=== PATIENT | male | born 1945 | race Caucasian/White ===

== ENCOUNTER 2018-09-21 08:58 | Day surgery (SDC) | payer MEDICARE, OTHER ==
[~2018-09-21 08:58] MED LIST: Ak-Dilate OPHTHALMIC*** 1.065 ML, Cyclogyl 1% OPHTH SOL 5 ML 1.065 ML, GATIFLOXACIN 0.5... OP ONE; Lactated Ringers 1,000 ML IV ONE; Lactated Ringers 1,000 ML IV SCH; TETRACAINE 0.5% STERI-UNIT SOL OP ONE
[2018-09-21] MEDS ORDERED: DIPRIVAN 200 MG/20 ML IV ONE (08:59)
[2018-09-21] MEDS ORDERED: BSS 500 ML, Fortaz/Tazicef 1 GM** 0.2 G IO ONE ×2 (11:00)
[2018-09-21] MEDS ORDERED: ACETAZOLAMIDE 250 MG TABLET PO ONE (11:00)
[2018-09-21] MEDS ORDERED: Zofran 4 MG/2 ML VIAL IV PRN (11:00)
[2018-09-21] MEDS ORDERED: LIDOCAINE HCL 1% AMPUL 5 ML IJ ONE (11:00)
[2018-09-21] MEDS ORDERED: Epinephrine Preservative Free 1 MG/ML INTRAOP ONE (11:00)
[2018-09-21] MEDS ORDERED: BETADINE 5% OPHTHALMIC 30 ML OP ONE (11:00)
[2018-09-21 11:47] VITALS: BP 152/82; PULSE 54; O2SAT 97
--- NOTE | 2018-09-21 14:49 | OP ---
DATE/TIME OF OPERATION: 09/21/2018 1034 TIME DICTATED: 1208 PREOPERATIVE DIAGNOSIS: Senile cataract of right eye. POSTOPERATIVE DIAGNOSIS: Senile cataract of right eye. SURGEON: Estefania Catherine MD ROPING MACHINE TENDER: None. OPERATION: Cataract extraction of right eye with an intraocular lens implant. STANDARD __X___ COMPLEX ANESTHESIA: MAC. ___X___ Monitored anesthesia care in combination with topical and intra-cameral anesthesia (because of the established specific risk of reflux, arrhythmias, or an anxiety attack associated with ocular manipulation as well as difficulty of the bus operator to manage such potentially catastrophic events while simultaneously attempting to complete the surgical procedure, it was deemed necessary for the patient's safety to have an anesthesiologist or a nurse addiction medicine physician present during the procedure whenever possible. The anesthesiologist or the nurse addiction medicine physician was utilized to monitor and regulate the intravenous sedation of the patient, so the patient was cooperative, relaxed, and comfortable). Topical anesthesia using Tetracaine eye drops together with intra cameral anesthesia using Lidocaine 1% MPF. The nurse was utilized to monitor the patient. ANESTHESIA PROVIDER: Steve Wade CRNA. COMPLICATIONS: None. BLOOD LOSS: None. INDICATIONS: The patient is undergoing cataract surgery in the hopes of eliminating the visual complaints and difficulty. PROCEDURE: After arriving at the facility's outpatient surgery area, an IV was started; the patient was given 5 mg of p.o. Versed. (If an anesthesia provider was not monitoring the patient) The patient was then given topical anesthetic Tetracaine eye drops. A cotton pellet was soaked into a solution of a combination of Zymaxid 0.5%, Victoriano-Synephrine 2.5% and Ocufen (other drops might have been substituted referenced in the patient's record). The pellet was inserted by the RN into the lower conjunctival cul-de-sac with a sterile forceps and left for 20 minutes. The pellet was then removed by the RN with a sterile forceps before taking the patient to the operating room. The preoperative area nurse identified the patient and marked the correct eye to be operated on. I identified the correct eye to be operated on and marked it appropriately in the outpatient surgery area. The patient was then taken into the operating room. Tetracaine eye drops were installed again in the correct eye. The eyelids and the lashes and the lid margins were scrubbed with Betadine solution. One drop of the diluted Betadine solution was placed in the conjunctival cul-de-sac for 45 seconds and then was irrigated. A drop of Tetracaine Gel was placed in the conjunctival cul-de-sac. The patient's forehead was taped to secure it during the procedure. The patient was monitored. The patient was then draped in the usual way for this procedure. An eye speculum was used to separate the eyelids. The eye was then fixated and a temporal 2.5 mm incision was made in the clear cornea temporally at the limbus. Through the incision, 0.25 cc of 1% non-preserved lidocaine was injected into the anterior chamber for intracameral anesthesia. The anterior chamber was then filled with viscoelastic. The pupil was small. I felt that it would be safer to mechanically dilate the pupil. A Malyugin ring was used at this point which dilated the pupil. That was removed at the end of the procedure prior to aspiration of the viscoelastic from the anterior chamber and posterior to the intraocular lens implant. The cataract had a great amount of cortical changes. That rendered seeing the anterior capsule difficult for a safe performance of an anterior capsulotomy. I injected an air bubble into the anterior chamber. I then injected 1 ML of vision blue solution into the anterior chamber. The vision blue solution was irrigated from the anterior chamber after 30 seconds. The anterior capsule was stained which facilitated performing the anterior capsulotomy safely. After that was completed, a cystotome was introduced into the anterior chamber and a round anterior capsulotomy was performed. The capsule was removed by a forceps. Hydrodissection was next carried utilizing a 25-gauge cannula and balanced salt solution to delineate the cortical material from the capsule and the nucleus from the cortical material. The nucleus was rotated freely into the capsular bag with no difficulty. The phaco tip of the [employer] Phacoemulsifier was introduced into the anterior chamber and two grooves were made into the nucleus 90 degrees apart. Using two spatulas resulted into the nucleus being fractured into four quadrants. The phaco tip was then used to remove each quadrant of the nucleus. Viscoelastic was used during this process to protect the corneal endothelium. Once the entire nucleus was removed, the phaco tip then was removed and the irrigation tip was introduced into the eye and the cortex was removed. The posterior capsule was polished. It was noticed that there was a tear into the posterior capsule with few vitreous strands into the pupil plan. An anterior vitrectomy was performed. A 20.50 diopter, [id number], posterior chamber lens implant, was inspected and found to be grossly normal. The implant was inserted into the implant injector cartridge; Viscoelastic again was introduced into the anterior chamber, which filled the capsular bag. The implant injector's cartridge tip was placed at the limbal wound and the posterior chamber implant was released into the capsular bag and rotated appropriately. The implant was found to be into the capsular bag and it was centered. __X__ 0.2 ml of Tri-Moxi was introduced via 27 gauge cannula into the vitreous cavity through the ciliary processes. Viscoelastic was aspirated from the anterior chamber and posterior to the intraocular lens implant from the capsular bag using the irrigating tip. The anterior chamber was irrigated and filled with 5 cc antibiotic solution (500 cc of BSS plus 2 ml of Fortaz 100 mg/ml) ( if patient was not allergic to the medication). The lips of the corneal incision were hydrated using BSS solution. The anterior chamber was checked and found to be water tight. One drop each of antibiotic, steroid and NSAID drops (refer to chart for drops used) were placed in the conjunctival cul-de-sac of the operated eye. Patient tolerated the procedure quite well and left the operating room in satisfactory condition. DISCHARGE SUMMARY: The patient was released in stable condition. The patient and those with the patient were given an instruction sheet as of how to care for the eye after surgery as well as counseling on any abnormal laboratory studies by the postoperative RN. The patient was also given an appointment card for follow-up in the office and is to call immediately for any difficulties including but not limited to pain in the eye, decreased vision, discharge from the eye, headache and or fever. DISCHARGE DIAGNOSIS: Pseudophakia of right eye.
== END 2018-09-21 11:59 | disposition home or self-care (01) ==
LOC: SDC 08:58
PROVIDERS: ATTEND Ophthalmology
DX: H25.9 Unspecified age-related cataract (principal); K21.9 Gastro-esophageal reflux disease without esophagitis; M19.90 Unspecified osteoarthritis, unspecified site; I10 Essential (primary) hypertension; Z79.899 Other long term (current) drug therapy
CPT/HCPCS: 94250; 99100; C1780; J0171; J2704; A9270-GY

== ENCOUNTER 2020-07-27 10:01 | Emergency (ER) | payer MEDICARE, OTHER ==
--- NOTE | 2020-07-27 10:11 | ERPHSYRPT ---
- History of Present Illness Time Seen by Provider: 07/27/20 10:10 Historian: patient Exam Limitations: no limitations Physician History: This is a 75-year-old white male who has a history of hypertension and takes an aspirin a day but no other anticoagulation therapy and presents with rectal bleeding. Patient had a normal colonoscopy 8 years ago per his report. Appr oximately 2 to 3 years ago he had a Cologuard test and that was negative for any blood. In the remote past patient was diagnosed with a gastric ulcer. Patient has associated mild periumbilical discomfort and mild nausea. He has had no vomiting. Patient has a history of hemorrhoids but this is different than his hemorrhoidal issue. Patient is a patient of Dr. Deras. Timing/Duration: today Activities at Onset: none Quality: other (Discomfort) Abdominal Pain Onset Location: periumbilical Pain Radiation: no radiation Severity of Pain-Max: mild Severity of Pain-Current: mild Associated Symptoms: nausea Previous symptoms: no prior history Allergies/Adverse Reactions: No Known Drug Allergies Allergy (Verified 07/27/20 10:17) Home Medications: Aspirin 81 mg DAILY 05/15/16 [History] Nebivolol HCl [Bystolic] 10 mg DAILY 05/15/16 [History] Multivitamin [Multivitamins] 1 each PO DAILY 09/14/18 [History] Tadalafil [Cialis] 5 mg PO DAILY 09/14/18 [History] Trazodone HCl [Desyrel] 50 mg PO HSPRN PRN 09/14/18 [History] Ubidecarenone [Co Q10] 100 mg PO DAILY 09/14/18 [History] Hx Tetanus, Diphtheria Vaccination/Date Given: Yes Hx Pneumococcal Vaccination/Date Given: Yes Travel Risk - International Travel Have you traveled outside of the country in past 3 weeks: No - Coronavirus Screening Are you exhibiting any of the following symptoms?: No Close contact with a COVID-19 positive Pt in past 14-21 Days: No - Review of Systems Constitutional: No Symptoms Eyes: No Symptoms Ears, Nose, & Throat: No Symptoms Respiratory: No Symptoms Cardiac: No Symptoms Abdominal/Gastrointestinal: Abdominal Pain (Very mild (1/10) periumbilical discomfort), Nausea Genitourinary Symptoms: No Symptoms Musculoskeletal: No Symptoms Skin: No Symptoms Neurological: No Symptoms Psychological: No Symptoms Endocrine: No Symptoms Hematologic/Lymphatic: No Symptoms Immunological/Allergic: No Symptoms All Other Systems: Reviewed and Negative - Past Medical History Pertinent Past Medical History: No Neurological History: No Pertinent History ENT History: Cataracts Cardiac History: Other Respiratory History: No Pertinent History Endocrine Medical History: No Pertinent History Musculoskeletal History: No Pertinent History GI Medical History: No Pertinent History History: No Pertinent History Psycho-Social History: No Pertinent History Male Reproductive Disorders: No Pertinent History 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 - Past Surgical History Past Surgical History: Yes Neuro Surgical History: No Pertinent History Cardiac: No Pertinent History Respiratory: No Pertinent History Gastrointestinal: No Pertinent History Genitourinary: No Pertinent History Musculoskeletal: Orthopedic Surgery Male Surgical History: No Pertinent History Other Surgical History: knees angela scopes, angela total knee replacment, carpal tunnel x3, shoulder rotator cuffs angela, hammer toe surgery, and l 4-5 diskectomy - Social History Smoking Status: Former smoker Exposure to second hand smoke: No Drug Use: none Patient Lives Alone: No - Nursing Vital Signs Nursing Vital Signs: Initial Vital Signs Pulse Rate 51 L 07/27/20 11:25 Respiratory Rate 18 07/27/20 11:25 Blood Pressure 129/72 07/27/20 11:25 O2 Sat by Pulse Oximetry 97 07/27/20 11:25 Pain Scale Pain Intensity 1 - Physical Exam General Appearance: no apparent distress, alert, anxiety Eye Exam: PERRL/EOMI, eyes nml inspection Ears, Nose, Throat Exam: normal ENT inspection, moist mucous membranes Neck Exam: normal inspection, non-tender, supple, full range of motion Respiratory Exam: normal breath sounds, lungs clear, airway intact, No chest tenderness, No respiratory distress Cardiovascular Exam: regular rate/rhythm, normal heart sounds, normal peripheral pulses Gastrointestinal/Abdomen Exam: soft, normal bowel sounds, tenderness (Mild periumbilical discomfort with palpation) Rectal Exam: not done Back Exam: normal inspection, normal range of motion, No CVA tenderness, No vertebral tenderness Extremity Exam: normal inspection, normal range of motion, pelvis stable Neurologic Exam: alert, oriented x 3, cooperative, bacon skinner II-XII nml as tested, normal mood/affect, nml cerebellar function, nml station & gait, sensation nml Skin Exam: normal color, warm, dry Lymphatic Exam: No adenopathy SpO2 Interpretation: normal O2 Delivery: Room Air Ordered Tests: Active Orders 24 hr Category Date Time Status ABDOMEN AND PELVIS W/0 CONTRAS [CT] Stat Exams 07/27/20 10:13 Taken AMYLASE Stat Lab 07/27/20 10:15 Completed CBC W DIFF Stat Lab 07/27/20 10:15 Completed CMP Stat Lab 07/27/20 10:15 Completed LIPASE Stat Lab 07/27/20 10:15 Completed Lactic Acid Stat Lab 07/27/20 10:10 Completed PROTIME WITH INR Stat Lab 07/27/20 10:15 Completed Medication Summary Discontinued Medications Generic Name Dose Route Start Last Admin Trade Name Freq PRN Reason Stop Dose Admin Ondansetron HCl 4 mg 07/27/20 10:24 07/27/20 10:31 Zofran 4 Mg/2 Ml Vial IV 07/27/20 10:25 4 mg STAT ONE Administration Ondansetron HCl Confirm 07/27/20 10:26 Zofran 4 Mg/2 Ml Vial Administered 07/27/20 10:27 Dose 4 mg .ROUTE .STK-MED ONE Pantoprazole Sodium 40 mg 07/27/20 10:24 07/27/20 10:31 Protonix 40 Mg Iv IV 07/27/20 10:25 40 mg STAT ONE Administration Pantoprazole Sodium Confirm 07/27/20 10:26 Protonix 40 Mg Iv Administered 07/27/20 10:27 Dose 40 mg IV .STK-MED ONE Lab/Rad Data: Laboratory Result Diagrams 07/27/20 10:15 07/27/20 10:15 Laboratory Results 07/27/20 07/27/20 07/27/20 Range/Units 10:15 10:15 10:15 WBC 10.2 (4.0-10.5) K/mm3 RBC 5.32 (4.1-5.6) M/mm3 Hgb 16.0 (12.5-18.0) gm/dl Hct 48.0 (42-50) % MCV 90.2 (78-100) fl MCH 30.1 (26-32) pg MCHC 33.3 (32-36) g/dl RDW 14.1 H (11.5-14.0) % Plt Count 165 (150-450) K/mm3 MPV 11.0 (7.5-11.0) fl Gran % 82.1 H (36.0-66.0) % Eos # (Auto) 0.03 (0-0.5) Absolute Lymphs (auto) 1.00 (1.0-4.6) Absolute Monos (auto) 0.77 (0.0-1.3) Lymphocytes % 9.8 L (24.0-44.0) % Monocytes % 7.5 (0.0-12.0) % Eosinophils % 0.3 (0.00-5.0) % Basophils % 0.3 (0.0-0.4) % Absolute Granulocytes 8.38 H (1.4-6.9) Basophils # 0.03 (0-0.4) PT 11.2 (8.83-12.87) SECONDS INR 0.99 (0.8-3.0) Sodium 135 L (137-145) mmol/L Potassium 4.4 (3.5-5.1) mmol/L Chloride 105 (98-107) mmol/L Carbon Dioxide 24 (22-30) mmol/L Anion Gap 10.4 (5-15) MEQ/L BUN 25 H (9-20) mg/dL Creatinine 0.87 (0.66-1.25) mg/dL Estimated GFR > 60.0 ML/MIN Glucose 130 H (74-106) mg/dL Lactic Acid (0.4-2.0) Calcium 9.6 (8.4-10.2) mg/dL Total Bilirubin 0.70 (0.2-1.3) mg/dL AST 32 (17-59) U/L ALT 21 (0-50) U/L Alkaline Phosphatase 46 (38-126) U/L Serum Total Protein 7.4 (6.3-8.2) g/dL Albumin 4.6 (3.5-5.0) g/dL Amylase 72 (30-110) U/L Lipase 49 (23-300) U/L // Range/Units 10:10 WBC (4.0-10.5) K/mm3 RBC (4.1-5.6) M/mm3 Hgb (12.5-18.0) gm/dl Hct (42-50) % MCV (78-100) fl MCH (26-32) pg MCHC (32-36) g/dl RDW (11.5-14.0) % Plt Count (150-450) K/mm3 MPV (7.5-11.0) fl Gran % (36.0-66.0) % Eos # (Auto) (0-0.5) Absolute Lymphs (auto) (1.0-4.6) Absolute Monos (auto) (0.0-1.3) Lymphocytes % (24.0-44.0) % Monocytes % (0.0-12.0) % Eosinophils % (0.00-5.0) % Basophils % (0.0-0.4) % Absolute Granulocytes (1.4-6.9) Basophils # (0-0.4) PT (8.83-12.87) SECONDS INR (0.8-3.0) Sodium (137-145) mmol/L Potassium (3.5-5.1) mmol/L Chloride (98-107) mmol/L Carbon Dioxide (22-30) mmol/L Anion Gap (5-15) MEQ/L BUN (9-20) mg/dL Creatinine (0.66-1.25) mg/dL Estimated GFR ML/MIN Glucose (74-106) mg/dL Lactic Acid 1.1 (0.4-2.0) Calcium (8.4-10.2) mg/dL Total Bilirubin (0.2-1.3) mg/dL AST (17-59) U/L ALT (0-50) U/L Alkaline Phosphatase (38-126) U/L Serum Total Protein (6.3-8.2) g/dL Albumin (3.5-5.0) g/dL Amylase (30-110) U/L Lipase (23-300) U/L - Progress Progress: improved, pain not gone completely, re-examined Progress Note: 07/27/20 11:44 CAT scan of the abdomen and pelvis shows a mild mid sigmoid colon dive rticulitis. No other acute findings are noted. There is significant diver to Kalosis in the descending colon and sigmoid colon. Counseled pt/family regarding: lab results, diagnosis, need for follow-up, rad results - Departure Departure Disposition: Home Clinical Impression: Diverticulitis Condition: Stable Critical Care Time: No Referrals: DOLLY DERAS MD [Primary Care Provider] - Additional Instructions: Drink plenty of clear liquids. Take medication as prescribed. Follow-up with your primary care provider to make arrangements for a colonoscopy in the future. Return to the emergency department if symptoms worsen. Prescriptions: Hydrocodone/APAP 5/325 [[place] 5/325 mg] 1 each PO Q8H PRN PRN #10 tablet MDD 3 PRN Reason: Pain Ciprofloxacin [Cipro 500 MG] 500 mg PO BID #14 tablet Metronidazole 500 mg [Flagyl 500 MG] 500 mg PO TID #21 tablet
[2020-07-27] MEDS ORDERED: PROTONIX 40 MG IV IV ONE ×2 (10:24→10:26)
[2020-07-27] MEDS ORDERED: Zofran 4 MG/2 ML VIAL IV ONE (10:24)
[2020-07-27] MEDS ORDERED: Zofran 4 MG/2 ML VIAL ONE (10:26)
[2020-07-27 10:37] LABS: INR 0.99 (0.8-3.0); PROTIME 11.2 SECONDS (8.83-12.87)
[2020-07-27 10:40] LABS: Absolute Neutrophil Ct (ANC) 8.38 (1.4-6.9); BASOPHIL % 0.3 % (0.0-0.4); Basophil (Absolute #) 0.03 (0-0.4); Eosinophil % 0.3 % (0.00-5.0); Eosinophil (Absolute #) 0.03 (0-0.5); Lymphocytes % 9.8 % (24.0-44.0); Mean Cell Volume 90.2 fl (78-100); Mean Corpuscular Hemoglobin 30.1 pg (26-32); Mean Corpuscular Hgb Concent. 33.3 g/dl (32-36); Monocyte (Absolute #) 0.77 (0.0-1.3); Monocytes % 7.5 % (0.0-12.0); Neutrophil % 82.1 % (36.0-66.0); Platelet Count 165 K/mm3 (150-450); Red Blood Count 5.32 M/mm3 (4.1-5.6); Red Cell Distribution Width 14.1 % (11.5-14.0); White Blood Count 10.2 K/mm3 (4.0-10.5)
[2020-07-27 10:42] LABS: ALBUMIN 4.6 g/dL (3.5-5.0); ALKALINE PHOSPHATASE 46 U/L (38-126); AMYLASE 72 U/L (30-110); BLOOD UREA NITROGEN 25 mg/dL (9-20); Calcium 9.6 mg/dL (8.4-10.2); Carbon Dioxide 24 mmol/L (22-30); Creatinine 1 0.87 mg/dL (0.66-1.25); EST GLOMERULAR FILTRATION RATE > 60.0 ML/MIN; Glucose 130 mg/dL (74-106); LIPASE 49 U/L (23-300); Potassium 4.4 mmol/L (3.5-5.1); SGOT/AST 32 U/L (17-59); SGPT/ALT 21 U/L (0-50); SODIUM 135 mmol/L (137-145); Total Protein 7.4 g/dL (6.3-8.2)
[2020-07-27 10:45] LABS: CHLORIDE 105 mmol/L (98-107)
[2020-07-27 10:47] LABS: ANION GAP 10.4 MEQ/L (5-15)
[2020-07-27 11:26] VITALS: PULSE 51
[2020-07-27] MEDS ORDERED: Flagyl 500 MG PO ONE (11:49)
[2020-07-27] MEDS ORDERED: Levofloxacin 500 MG Tablet PO ONE (11:49)
--- NOTE | 2020-07-27 11:50 | XRAY ---
Exam: CT of the abdomen and pelvis without IV contrast from 07/27/2020. CTDI: 10.76 mGy Comparison: CT of the abdomen and pelvis without and with IV contrast from 09/15/2006. Indication: 75-year-old male with blood in stools since last evening, complains of lower abdominal pain, nausea and vomiting. Technique: Non-IV contrast axial images were obtained through the abdomen and pelvis. No oral contrast was given. Reconstructed coronal and sagittal images were created and reviewed. Findings: The visualized lung bases are essentially clear except for a thin linear strand of fibrosis or plate atelectasis at the medial left lung base. There is equivocal evidence of a minimal hiatal hernia. Assessment of the solid organs is limited on a non-IV contrast study only. The liver appears of unremarkable size and reveals no definite mass or intrahepatic biliary duct distention. The gallbladder is distended and reveals no dense calcifications within it. The spleen is borderline enlarged measuring 13.3 cm in greatest cross-section. I don't believe this represents a change from 09/15/2006. No definite splenic mass is seen. The pancreas and adrenal glands appear unremarkable. The kidneys appear of average size and reveal no calculi or hydronephrosis. There appears to be a 2.5 cm x 1.7 cm cyst measuring +7.6 Hounsfield units within the lower pole of the right kidney on axial images #39 through #43. This is not seen on the prior CT study from 2005. I do note a small exophytic nodule at the anterior margin of the lower pole of the left kidney measuring about 1 cm in diameter on axial image #37 which is unchanged from 09/15/2006 and likely represents a mildly hyperdense cyst. I believe there is another tiny 9 mm probable cyst posterior laterally within the lower pole of the left kidney as well. Atherosclerotic vascular calcification is seen within the abdominal aorta and iliac arteries as well as the common femoral arteries. No abdominal aortic aneurysm or abnormal retroperitoneal lymphadenopathy is seen. There is abundant intraperitoneal fat. I see a small fat-containing umbilical hernia. No free intraperitoneal air or bowel containing ventral hernia is seen. The appendix is not well seen, but no significant inflammatory changes are seen about the cecum to suggest appendicitis. The bowel appears nonobstructed. Mild scattered colonic fecal residue is seen. I also note some scattered colonic diverticula. The diverticula are most numerous within the distal descending and sigmoid colon. There is slight haziness about the mid sigmoid colon on axial images #65 and #66. It would be difficult to exclude a mild diverticulitis. I see no free intraperitoneal fluid within the lower pelvis. The urinary bladder is only minimally distended. The seminal vesicles and prostate gland appear unremarkable. A small fat-containing left inguinal hernia is seen. No definite large pelvic lymph nodes are seen. Iliac artery and common femoral artery vascular calcification is seen. The skeleton reveals no acute fracture or aggressive bone lesion. There is a mild lower lumbar rotary convexity toward the left centered at L4. Marked degenerative disc disease is seen at L4-L5 and L5-S1. There is also mild left lateral subluxation of L4 respect to L5 on the coronal images which is likely due to the arthritis and stress changes from the scoliosis. There is marked facet joint osteoarthritis at L5-S1 on the left and moderate facet osteoarthritis at L2-L3, L3-L4, and L4-L5 bilaterally. Impression: 1. Scattered colonic diverticulosis is seen, the largest number of diverticula seen within the distal descending and sigmoid colon. There is slight pericolonic haziness about the mid sigmoid colon which could be due to mild concomitant diverticulitis. 2. Mild diffuse colonic fecal stasis. No bowel obstruction is seen. There is no free air or free fluid. 3. Equivocal evidence of minimal hiatal hernia, borderline splenomegaly, fatty umbilical hernia and small fatty left inguinal hernia, and some small probable bilateral renal cysts are seen. 4. Skeletal findings, as discussed above.
[2020-07-27] MEDS ORDERED: Levofloxacin 500 MG Tablet ONE (12:00)
[2020-07-27] MEDS ORDERED: Flagyl 500 MG ONE (12:01)
[2020-07-27 12:09] VITALS: BP 117/72; O2SAT 98
== END 2020-07-27 12:14 | disposition home or self-care (01) ==
LOC: ED 10:01
DX: K57.92 Diverticulitis of intestine, part unspecified, without perforation or abscess without bleeding (principal); I10 Essential (primary) hypertension; Z79.82 Long term (current) use of aspirin; Z79.01 Long term (current) use of anticoagulants; R10.9 Unspecified abdominal pain; R11.0 Nausea; Z79.899 Other long term (current) drug therapy
CPT/HCPCS: 36415; 74176; 80053; 82150; 83605; 83690; 85025; 85610; 96374; 96375; 99284; J2405; A9270-GY

== ENCOUNTER 2021-04-16 10:17 | Day surgery (SDC) | payer MEDICARE, OTHER ==
[~2021-04-16 10:17] MED LIST changes: -Ak-Dilate OPHTHALMIC*** 1.065 ML, Cyclogyl 1% OPHTH SOL 5 ML 1.065 ML, GATIFLOXACIN 0.5... OP ONE; +BETADINE 5% OPHTHALMIC 30 ML OP ONE; +Epinephrine Preservative Free 1 MG/ML INTRAOP ONE; +LIDOCAINE HCL 1% 50 MG/5 ML VL PF IJ ONE; -Lactated Ringers 1,000 ML IV SCH; +NON-FORMULARY ITEM IJ ONE; +Zofran 4 MG/2 ML VIAL IV PRN; +cefUROXime sodium 0.005 GM in Sodium Chloride Flush 30 ML*** 0.5 ML IJ SCH
[2021-04-16] MEDS: Lactated Ringers 1,000 ML IV SCH (10:28)
[2021-04-16] MEDS: TETRACAINE 0.5% STERI-UNIT SOL OP ONE (11:10)
[2021-04-16] MEDS: Ak-Dilate OPHTHALMIC*** 1.065 ML, Cyclogyl 1% OPHTH SOL 5 ML 1.065 ML, GATIFLOXACIN 0.5... OP ONE ×4 (11:10)
[2021-04-16] MEDS ORDERED: DIPRIVAN 200 MG/20 ML IV ONE (12:29)
[2021-04-16 13:14] VITALS: O2SAT 98
[2021-04-16] MEDS: ACETAZOLAMIDE 250 MG TABLET PO ONE (13:14)
[2021-04-16 13:46] VITALS: BP 123/90; PULSE 49
== END 2021-04-16 13:52 | disposition home or self-care (01) ==
LOC: SDC 10:17
PROVIDERS: ATTEND Ophthalmology
DX: H25.812 Combined forms of age-related cataract, left eye (principal); I10 Essential (primary) hypertension; Z79.899 Other long term (current) drug therapy
CPT/HCPCS: 99100; C1780; J0171; J2001; J2704; A9270-GY